=== PATIENT | male | born 1950 | race Caucasian/White ===

== ENCOUNTER → 2017-11-17 | Outpatient (CLI) | payer MEDICARE, OTHER ==
--- NOTE | 2017-11-17 13:41 | Diagnostic Imaging Report ---
PROCEDURE:CT CHEST WITHOUT CONTRAST COMPARISON:None. INDICATIONS:COUGH, SHORTNESS OF BREATH TECHNIQUE: Axial CT images of the chest were obtained. Coronal and sagittal reformations were made available for review. RADIATION DOSE: Total DLP 909 mGy*cm Estimated effective dose: (DLP x 0.014 x size factor) mSv FINDINGS: Lungs: Right lung: Calcified nodule in the lateral right upper lobe measures 10 x 9 mm with a small mantle of peripheral soft tissue and tenting of the adjacent pleura. The lung is hyperinflated baseline with mild bronchial wall thickening. No bronchiectasis. Left lung: Diffusely hyperinflated with mild bronchial wall thickening. No bronchiectasis. No soft tissue mass or infiltrate.. Pleura:No pleural effusion or pneumothorax. Lymph nodes: No enlarged axillary or subclavicular lymph nodes. There are calcified right paratracheal, subcarinal, and right hilar lymph nodes. No soft tissue adenopathy Heart \T\ Mediastinum:The heart is normal in size with moderate burden of coronary artery atherosclerosis. The aorta and main pulmonary artery are normal in diameter. The esophagus is collapsed. Upper abdomen:The liver is decreased attenuation consistent with steatosis. Visualized portions of the pancreas, spleen, and adrenal glands are normal. A cyst in the posterior upper pole of the left kidney measures 9 mm. Musculoskeletal: Degenerative changes of the spine with flowing osteophytes suggesting DISH. No compression deformities. There are no lytic lesions. A bone island in the right humeral head measures 7 mm. CONCLUSION: 1. Pulmonary hyperinflation suggestive of small airways disease. Mild bronchial wall thickening suggestive of chronic bronchitis. 2. Healed granulomatous inflammation. Partially calcified nodule in the right upper lobe should be monitored annually with CT to confirm stability. 3. Hepatic steatosis. Left renal cyst. Dictated by: Jesus Blanco M.D. on 11/17/2017 at 13:48 Electronically approved by: Jesus Blanco M.D. on 11/17/2017 at 13:48
== END ==
LOC: CT 12:29
PROVIDERS: ATTEND Internal Medicine Critical Care Medicine
DX: R05 Cough (principal); R06.00 Dyspnea, unspecified
CPT/HCPCS: 71250